=== PATIENT | male | born 1975 ===

== ENCOUNTER 2016-09-25 13:14 | Emergency (ER) | payer SELFPAY ==
--- NOTE | 2016-09-25 13:37 | ERRECORD ---
[facility] EMERGENCY RECORD HPI ABDOMINAL PAIN (13:28 ABUS) CHIEF COMPLAINT: Patient presents for evaluation of abdominal pain, Patient presents for evaluation of Inguinal area. HISTORIAN: History provided by patient, 41 yr old M with DM who [facility] in from [facility] with reports of lower abdominal bulging concerning for hernia. Denies any F, N.V, D. Last BM was today and was normal. The mass reduces itself when lying down. LOCATION MALE: Symptoms are localized, R inguinal and scrotal area. QUALITY: Pain is dull in nature, described as aching. SEVERITY: Currently symptoms are mild. TIME COURSE: Symptoms are intermittent, There has been no change in the patient's symptoms over time. ASSOCIATED WITH: No associated bright red blood per rectum, No associated constipation, No associated diarrhea, No associated fever, No associated hematemesis, No associated melena, No associated nausea, No associated testicular pain, No associated trauma, No associated inability to tolerate oral intake, No associated urinary tract infection signs or symptoms, No associated vomiting. RELIEVED BY: Patient's condition relieved by supine position. EXACERBATED BY: Patient's condition exacerbated by nothing. ROS (13:30 ABUS) CONSTITUTIONAL: Negative constitutional review of systems, Historian denies chills, denies fever. ENT: Negative ears, nose, throat review of systems, Historian denies rhinorrhea, denies sore throat. CARDIOVASCULAR: Negative cardiovascular review of systems, Historian denies chest pain, denies palpitations. RESPIRATORY: Negative respiratory review of systems, Historian denies cough, denies shortness of breath. GI: Negative gastrointestinal review of systems, Historian denies abdominal pain, denies constipation, denies diarrhea, denies nausea, denies vomiting. GENITOURINARY MALE: Inguinal hernia without pain or scrotal redness or swelling. reduces with supine. MUSCULOSKELETAL: Negative musculoskeletal review of systems, Historian denies back pain, denies fall, denies injury, denies neck pain. SKIN: Negative skin review of systems, Historian denies rash, denies skin changes. NEUROLOGIC: Negative neurologic review of systems, Historian denies headache. KNOWN ALLERGIES No Known Drug Allergies CURRENT MEDICATIONS No recorded medications VITAL SIGNS &a-1R&a+25V*p+0X*w5257W*c152B*c15G*c2P*p-0X&a-25V&a+1RName: Bruna Hansen : 1975 M41 MedRec: [id number] AcctNum: [id number] Prepared: Dioni Sep 25, 2016 13:46 by Interface Page 1 of 3 pMD [facility] EMERGENCY RECORD VITAL SIGNS: BP: 106/68, Pulse: 94, Resp: 18, Temp: 96.8 (Tympanic), Pain: 8, O2 sat: 100 on Room Air, Time: 09/25/2016 13:22. (13:22 SFRE) BP: 106/68, Pulse: 94, Resp: 18, Temp: 96.8, O2 sat: 100 on ra, Time: 09/25/2016 13:30. (13:30 JPER) PHYSICAL EXAM CONSTITUTIONAL: Vital signs reviewed, Patient afebrile, Pulse normal, Blood pressure normal, Respiratory rate normal, Patient appears non toxic, Patient appears pain free, Patient alert and oriented to person, place and time. (13:30 ABUS) NECK: Neck exam normal, Neck exam included findings of normal range of motion, Trachea midline, no meningeal signs, no cervical adenopathy, no tenderness. (13:30 ABUS) RESPIRATORY CHEST: Respiratory and chest exam normal, Respiratory exam included findings of no respiratory distress, Breath sounds clear. (13:30 ABUS) CARDIOVASCULAR: Cardiovascular assessment normal, Cardiovascular exam included findings of heart rate regular rate and rhythm, Heart sounds normal. (13:30 ABUS) ABDOMEN MALE: Abdominal exam included findings of abdomen nontender, Bowel sounds normal, no distension, no mass, no pulsatile masses, no peritoneal signs, no rigidity, no guarding, no rebound, Rovsing's sign absent. (13:30 ABUS) GENITOURINARY MALE: External genitalia normal, Genitourinary exam included findings of penis normal, Testicles normal, Inguinal hernia without pain or scrotal redness or swelling. reduces with supine. (13:31 ABUS) BACK: Back exam normal, Back exam included findings of normal inspection, range of motion normal, no tenderness. (13:30 ABUS) NEURO: Neuro exam normal, Neuro exam findings include patient oriented to person, place and time, Speech normal, Gait normal. (13:30 ABUS) SKIN: Skin exam normal, Skin exam included findings of skin warm, dry, and normal in color, no rash. (13:30 ABUS) DOCTOR NOTES (13:31 ABUS) TEXT: 41 yr old M with DM who [facility] in from [facility] with reports of lower abdominal bulging concerning for hernia. Denies any F, N.V, D. Last BM was today and was normal. The mass reduces itself when lying down. Exam: Inguinal hernia without pain or scrotal redness or swelling. reduces with supine. Dx: Reducible inguinal hernia (without manipulation). Plan: limit weight carrying and exercise physical labor. Surgery referral for outpatient follow up. PROBLEM LIST No recorded problems DIAGNOSIS (13:26 ABUS) FINAL: PRIMARY: Inguinal Hernia. &a-1R&a+25V*p+0X*e2536O*c152B*c15G*c2P*p-0X&a-25V&a+1RName: Bruna Hansen : 1975 M41 MedRec: [id number] AcctNum: [id number] Prepared: SatSep 25, 2016 13:46 by Interface Page 2 of 3 pMD [facility] EMERGENCY RECORD PRESCRIPTION No recorded prescriptions DISPOSITION PATIENT: Disposition Type: Discharge, Disposition: Discharge to Shelter, Condition: Good. (13:26 ABUS) Patient left the department. (13:38 JPER) Zaragoza: CAROL=MD Lety, Eddie HONG=Alonso RN, Nery GOMEZ=CELSA Millan, Neema &a-1R&a+25V*p+0X*a0356X*c152B*c15G*c2P*p-0X&a-25V&a+1RName: Bruna Hansen : 1975 M41 MedRec: [id number] AcctNum: [id number] Prepared: SatSep 25, 2016 13:46 by Interface Page 3 of 3 pMD MTDD
--- NOTE | 2016-09-25 13:38 | PICIS ---
[facility] EMERGENCY RECORD TRIAGE (13:24 SFRE) PATIENT: NAME: Bruna Hansen, AGE: 41, GENDER: male, : Sun 1975, TIME OF GREET: SatSep 25, 2016 13:14, ECODE BILLING MAP: [facility], Zip Code: [address], KG WEIGHT: 70.31, PHONE: , , , PERSON ID: [id number], PCP: OOT. (13:24 SFRE) TRIAGE NOTES: STATES HE HAS INGUINAL HERNIA APPROX 2 WEEKS. (13:24 SFRE) COMPLAINT: STOMACH PAIN. (13:24 SFRE) ADMISSION: URGENCY: 4 Non Urgent, ADMISSION SOURCE: [facility], TRANSPORT: [facility], BED: ED -02. (13:24 SFRE) ASSESSMENT: Assessment: eval inguinal hernia 2 weeks plus. (13:25 JPER) PROVIDERS: TRIAGE NURSE: Neema Millan RN. (13:24 SFRE) VITAL SIGNS: BP 106/68, Pulse 94, Resp 18, Temp 96.8, (Tympanic), Pain 8, O2 Sat 100, on Room Air, Time 09/25/2016 13:22. (13:22 SFRE) KNOWN ALLERGIES No Known Drug Allergies CURRENT MEDICATIONS No recorded medications VITAL SIGNS VITAL SIGNS: BP: 106/68, Pulse: 94, Resp: 18, Temp: 96.8 (Tympanic), Pain: 8, O2 sat: 100 on Room Air, Time: 09/25/2016 13:22. (13:22 SFRE) BP: 106/68, Pulse: 94, Resp: 18, Temp: 96.8, O2 sat: 100 on ra, Time: 09/25/2016 13:30. (13:30 JPER) NURSING ASSESSMENT: ABDOMEN (13:25 JPER) CONSTITUTIONAL: DEFERRED TO ERMD. NURSING PROCEDURE: DISCHARGE NOTE (13:30 JPER) DISCHARGE: Patient discharged in police custody, ambulating without assistance, transported via police, accompanied by law enforcement, Summary of Care printed/ provided, Patient requested and was provided an electronic copy of Discharge Instructions, Transition record given to patient, Discharge instructions given to patient, Above person(s) verbalized understanding of discharge instructions and follow-up care, Patient treated and evaluated by physician. BELONGINGS: Belongings remain with patient, Valuables remain with patient. NOTES: Emotional support needed and given. VITAL SIGNS: BP: 106, / 68, Pulse: 94, Resp: 18, Temp: 96.8, O2 sat: 100, on: ra. HPI ABDOMINAL PAIN (13:28 ABUS) CHIEF COMPLAINT: Patient presents for evaluation of abdominal pain, Patient presents for evaluation of Inguinal &a-1R&a+25V*p+0X*d7727Y*c152B*c15G*c2P*p-0X&a-25V&a+1RName: Bruna Hansen : 1975 M41 MedRec: [id number] AcctNum: [id number] Prepared: Dioni Sep 25, 2016 13:46 by Interface Page 1 of 4 pMD [facility] EMERGENCY RECORD area. HISTORIAN: History provided by patient, 41 yr old M with DM who comes in from senior care with reports of lower abdominal bulging concerning for hernia. Denies any F, N.V, D. Last BM was today and was normal. The mass reduces itself when lying down. LOCATION MALE: Symptoms are localized, R inguinal and scrotal area. QUALITY: Pain is dull in nature, described as aching. SEVERITY: Currently symptoms are mild. TIME COURSE: Symptoms are intermittent, There has been no change in the patient's symptoms over time. ASSOCIATED WITH: No associated bright red blood per rectum, No associated constipation, No associated diarrhea, No associated fever, No associated hematemesis, No associated melena, No associated nausea, No associated testicular pain, No associated trauma, No associated inability to tolerate oral intake, No associated urinary tract infection signs or symptoms, No associated vomiting. RELIEVED BY: Patient's condition relieved by supine position. EXACERBATED BY: Patient's condition exacerbated by nothing. ROS (13:30 ABUS) CONSTITUTIONAL: Negative constitutional review of systems, Historian denies chills, denies fever. ENT: Negative ears, nose, throat review of systems, Historian denies rhinorrhea, denies sore throat. CARDIOVASCULAR: Negative cardiovascular review of systems, Historian denies chest pain, denies palpitations. RESPIRATORY: Negative respiratory review of systems, Historian denies cough, denies shortness of breath. GI: Negative gastrointestinal review of systems, Historian denies abdominal pain, denies constipation, denies diarrhea, denies nausea, denies vomiting. GENITOURINARY MALE: Inguinal hernia without pain or scrotal redness or swelling. reduces with supine. MUSCULOSKELETAL: Negative musculoskeletal review of systems, Historian denies back pain, denies fall, denies injury, denies neck pain. SKIN: Negative skin review of systems, Historian denies rash, denies skin changes. NEUROLOGIC: Negative neurologic review of systems, Historian denies headache. PHYSICAL EXAM CONSTITUTIONAL: Vital signs reviewed, Patient afebrile, Pulse normal, Blood pressure normal, Respiratory rate normal, Patient appears non toxic, Patient appears pain free, Patient alert and oriented to person, place and time. (13:30 ABUS) NECK: Neck exam normal, Neck exam included findings of normal range of motion, Trachea midline, no meningeal signs, no cervical adenopathy, no tenderness. (13:30 ABUS) RESPIRATORY CHEST: Respiratory and chest exam normal, Respiratory exam included findings of no respiratory distress, Breath sounds &a-1R&a+25V*p+0X*d0665J*c152B*c15G*c2P*p-0X&a-25V&a+1RName: Bruna Hansen : 1975 M41 MedRec: [id number] AcctNum: [id number] Prepared: Dioni Sep 25, 2016 13:46 by Interface Page 2 of 4 pMD [facility] EMERGENCY RECORD clear. (13:30 ABUS) CARDIOVASCULAR: Cardiovascular assessment normal, Cardiovascular exam included findings of heart rate regular rate and rhythm, Heart sounds normal. (13:30 ABUS) ABDOMEN MALE: Abdominal exam included findings of abdomen nontender, Bowel sounds normal, no distension, no mass, no pulsatile masses, no peritoneal signs, no rigidity, no guarding, no rebound, Rovsing's sign absent. (13:30 ABUS) GENITOURINARY MALE: External genitalia normal, Genitourinary exam included findings of penis normal, Testicles normal, Inguinal hernia without pain or scrotal redness or swelling. reduces with supine. (13:31 ABUS) BACK: Back exam normal, Back exam included findings of normal inspection, range of motion normal, no tenderness. (13:30 ABUS) NEURO: Neuro exam normal, Neuro exam findings include patient oriented to person, place and time, Speech normal, Gait normal. (13:30 ABUS) SKIN: Skin exam normal, Skin exam included findings of skin warm, dry, and normal in color, no rash. (13:30 ABUS) EVENTS TRANSFER: Triage to Emergency Main ED -02. (SatSep 25, 2016 13:24 SFRE) Emergency Main ED -02 to Holding. (13:33 MDEB) Removed from Emergency Holding. (13:38 JPER) DOCTOR NOTES (13:31 ABUS) TEXT: 41 yr old M with DM who comes in from senior care with reports of lower abdominal bulging concerning for hernia. Denies any F, N.V, D. Last BM was today and was normal. The mass reduces itself when lying down. Exam: Inguinal hernia without pain or scrotal redness or swelling. reduces with supine. Dx: Reducible inguinal hernia (without manipulation). Plan: limit weight carrying and exercise physical labor. Surgery referral for outpatient follow up. PROBLEM LIST No recorded problems DIAGNOSIS (13:26 ABUS) FINAL: PRIMARY: Inguinal Hernia. DISPOSITION PATIENT: Disposition Type: Discharge, Disposition: Discharge to [facility], Condition: Good. (13:26 ABUS) Patient left the department. (13:38 JPER) INSTRUCTION (13:27 ABUS) DISCHARGE: INGUINAL HERNIA. FOLLOWUP: Prachi TIPTON., ARTURO WISEMAN, General Surgery, [address] [place] [address], [address], [facility] [address], [phone], Follow up with &a-1R&a+25V*p+0X*r9079Y*c152B*c15G*c2P*p-0X&a-25V&a+1RName: Bruna Hansen : 1975 M41 MedRec: [id number] AcctNum: [id number] Prepared: SatSep 25, 2016 13:46 by Interface Page 3 of 4 pMD [facility] EMERGENCY RECORD Primary Care Physician as soon as possible. SPECIAL: Please keep any upcoming appointments with your primary doctor or call the referral provided to you today to establish a follow up evaluation or ongoing medical care. Please come back if you start to have fever, vomiting, worsening abdominal pain, inability to urinate, or any symptoms that concern you. PRESCRIPTION No recorded prescriptions IMAGING (13:37 JPER) *DISCHARGE INSTRUCTIONS RECEIPT: Image captured from scanner. *SUPPLY CHARGE SHEET: Image captured from scanner. ADMIN (13:32 AB) DIGITAL SIGNATURE: MD Davidson Anthony. Zaragoza: ABUS=MD Davidson Anthony JPER=CELSA Gupta, Nery HECK=CELSA Rey, Danita BERMUDEZE=CELSA Millan, Neema &a-1R&a+25V*p+0X*n2307O*c152B*c15G*c2P*p-0X&a-25V&a+1RName: Bruna Hansen : 1975 M41 MedRec: [id number] AcctNum: [id number] Prepared: Dioni Sep 25, 2016 13:46 by Interface Page 4 of 4 pMD MTDD
== END 2016-09-25 13:30 ==
LOC: MADERS 13:14
DX: K40.90 Unilateral inguinal hernia, without obstruction or gangrene, not specified as recurrent (principal)
CPT/HCPCS: 99284